=== PATIENT | male | born 1980 | race Caucasian/White ===

== ENCOUNTER 2018-12-11 20:01 | Emergency (ER) | payer SELFPAY ==
[2018-12-11] MEDS ORDERED: KEPPRA 1,000 MG/NS 0.75% 100ML 1,000 MG/100 ML BAG IV ONE (20:22)
[2018-12-11 20:36] LABS: Hematocrit 36.5 % (35.5-45.6); Hemoglobin 12.7 gm/dl (11.8-15.2); Mean Corpuscular HGB Conc 35 % (32-34); Mean Corpuscular Volume 84 fl (84-94); Platelet Count 256 K/mm3 (140-440); Red Blood Count 4.34 M/mm3 (3.65-5.03); Red Cell Distribution Width 12.2 % (13.2-15.2)
[2018-12-11 20:50] LABS: BUN/Creatinine Ratio 18; Blood Urea Nitrogen 14 mg/dL (9-20); Calcium 9.7 mg/dL (8.4-10.2); Hemolysis Index 27
[2018-12-11] MEDS ORDERED: TORADOL IV ONE (20:53)
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
[2018-12-11] MEDS ORDERED: ATIVAN IV ONE (21:36)
--- NOTE | 2018-12-11 22:00 | Cat Scan Report ---
PROCEDURE: CT head without contrast. TECHNIQUE: Computerized tomography of the head was performed without contrast material. CT DOSE LENGTH PRODUCT: 939.5 mGycm HISTORY: Headache after seizure and fall. COMPARISONS: None. FINDINGS: The ventricles are normal in size. There is focal low attenuation involving the lateral portion of th e left parietal lobe. This involves portions of burns matter and white matter. There is no obvious mas s effect. The appearance is consistent with encephalomalacia, likely secondary to an old stroke. Clin ical correlation is recommended. If there is no history of a previous stroke, a contrast enhanced MRI scan is recommended to evaluate for a possible occult lesion. The remainder of the burns matter and w chloe matter appear normal. There is no intracranial hemorrhage. The calvarium appears intact. The mas toid air cells and visualized paranasal sinuses are well aerated. 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 Please see above comments. This document is electronically signed by Roderick Ro MD., Dec 11 2018 09:58:06 PM ET
[2018-12-12 00:50] VITALS: BP 107/62
== END 2018-12-12 01:03 | disposition home or self-care (01) ==
LOC: ED 20:01
DX: R56.9 Unspecified convulsions (principal); F19.10 Other psychoactive substance abuse, uncomplicated
CPT/HCPCS: 36415; 70450; 80048; 82962; 85027; 96365; 96375; 99285; J1885; J1953; J2060